=== PATIENT | female | born 1990 | race Caucasian/White ===

== ENCOUNTER 2016-11-22 07:54 | Inpatient (IN) | payer MEDICAID, OTHER ==
[2016-11-22] MEDS ORDERED: PITOCin/NS 20 UNIT/1000ML DRIP 20,000 MILLIUNITS/1,000 ML BAG IV ONE (08:39)
[2016-11-22] MEDS: PITOCin/NS 20 UNIT/1000ML DRIP 20 UNITS/1,000 ML BAG IV SCH ×2 (08:46→10:24)
--- NOTE | 2016-11-22 09:19 | History and Physical Report ---
History of Present Illness Date of examination: 11/22/16 Date of admission: 11/22/16 08:08 Chief complaint: contractions History of present illness: 26 Y/0 presents to Labor and delivery in active labor. care at [facility]. No records available. Limited [place] spoken by the family. Past History Past Medical History: no pertinent history Past Surgical History: no surgical history Family/Genetic History: none Social history: no significant social history - Obstetrical History Expected Date of Delivery: 11/23/16 Actual Gestation: 39 Week(s) 6 Day(s) : 4 Para: 1 Hx # Term Pregnancies: 1 Spontaneous Abortions: 2 Number of Living Children: 1 Medications and Allergies Allergies Allergy/AdvReac Type Severity Reaction Status Date / Time No Known Allergies Allergy Unverified 09/05/14 03:55 Home Medications Medication Instructions Recorded Confirmed Last Taken Type HYDROcodone/APAP 5-325 [[place] 1 each PO Q6HR PRN #20 tablet 09/06/14 Unknown Rx 5/325] Ibuprofen [Motrin] 800 mg PO TID PRN #60 tablet 09/06/14 Unknown Rx Review of Systems All systems: negative - Vital Signs Vital signs: Vital Signs Temp Resp 98.4 F 18 11/22/16 08:15 11/22/16 08:15 Temp Pulse Resp BP Pulse Ox 98.4 F 74 18 110/55 98 11/22/16 08:15 11/22/16 09:06 11/22/16 08:15 11/22/16 09:03 11/22/16 09:06 - Physical Exam Breasts: Positive: deferred Cardiovascular: Regular rate Abdomen: Positive: soft Vulva: both: normal Vagina: Positive: normal moisture Uterus: Positive: enlarged Deep Tendon Reflex Grade: Normal +2 - Obstetrical FHR: category 1 Uterine Contraction Monitor Mode: External Cervical Dilatation: 8 Cervical Effacement Percentage: 100 station: +1 Uterine Contraction Pattern: Regular Uterine Contraction Intensity: Strong/Firm Results All other labs normal. Assessment and Plan A: Active labor at term P: Expect
--- NOTE | 2016-11-22 09:33 | Procedure Note ---
OB Delivery Note - Delivery Date of Delivery: 11/22/16 Surgeon: TUCKER DENNY Estimated blood loss: 100cc - Vaginal Delivery presentation: vertex Delivery position: OA Intrapartum events: meconium Delivery induction: none Delivery monitor: external FHT, external uterine Route of delivery: Delivery placenta: spontaneous Delivery cord: 3 umbilical vessels Episiotomy: none Delivery laceration: other (R labial lac, no repair) Anesthesia: none Delivery comments: (nurse delivery)of a viable female 8#-2oz at 0825 on 11/22/2016 over intact perineum. Small right labial laceration noted, no repair. Thick meconium at delivery. Placenta delivered by ROSE Bond. EBL 100cc. Mother and baby doing well. - Infant A at 1 minute: 8 at 5 minutes: 9 (8# 2oz) Infant Gender: Female
[2016-11-22] MEDS ORDERED: MINERAL OIL PO PRN (09:56)
[2016-11-22] MEDS ORDERED: BENADRYL PO PRN (09:58)
[2016-11-22] MEDS ORDERED: DULCOLAX PR PRN (09:58)
[2016-11-22] MEDS ORDERED: TYLENOL PO PRN (09:58)
[2016-11-22] MEDS ORDERED: NORCO 5/325 PO PRN (09:58)
[2016-11-22] MEDS ORDERED: LANSINOH TP PRN (09:58)
[2016-11-22] MEDS ORDERED: LACTATED RINGERS 1,000 ML IV SCH (10:00)
[2016-11-22] MEDS ORDERED: SODIUM CHLORIDE FLUSH SYRINGE 10 ML IV NR (10:00)
[2016-11-22] MEDS: MOTRIN PO SCH ×3 (10:23→23:39)
[2016-11-22 10:29] LABS: Hematocrit 34.1 % (30.3-42.9); Hemoglobin 10.9 gm/dl (10.1-14.3); Mean Corpuscular HGB Conc 32 % (30-34); Mean Corpuscular Volume 76 fl (79-97); Platelet Count 159 K/mm3 (140-440); Red Blood Count 4.46 M/mm3 (3.65-5.03); Red Cell Distribution Width 15.2 % (13.2-15.2); White Blood Count 8.2 K/mm3 (4.5-11.0)
[2016-11-22 10:32] LABS: Mean Corpuscular Hemoglobin 24 pg (28-32)
[2016-11-22 22:40] LABS: Hematocrit 29.7 % (30.3-42.9); Hemoglobin 9.4 gm/dl (10.1-14.3)
[2016-11-23] MEDS: MOTRIN PO SCH ×3 (05:51→23:28)
[2016-11-23] MEDS ORDERED: BOOSTRIX IM ONE (06:00)
--- NOTE | 2016-11-23 09:59 | Progress Note ---
Assessment and Plan A: PP Day #1 Asymptomatic Anemia P: Follow Routine Orders D/C home today per patient request RTO in 6 Weeks Subjective - Subjective Date of service: 11/23/16 Patient reports: appetite normal, voiding normally, pain well controlled, flatus , ambulating normally Anabel: doing well Objective - Vital Signs Latest vital signs: Vital Signs Temp Pulse Pulse Resp BP BP BP 11/23/16 07:55 97.9 F 64 18 94/60 11/23/16 00:22 97.9 F 62 18 93/50 11/22/16 21:20 98.2 F 62 18 100/48 11/22/16 16:39 97.7 F 76 20 100/70 11/22/16 12:03 16 11/22/16 10:30 98.4 F 65 16 98/47 11/22/16 10:06 64 11/22/16 10:03 65 107/64 11/22/16 10:01 65 Pulse Ox 11/23/16 07:55 11/23/16 00:22 11/22/16 21:20 11/22/16 16:39 11/22/16 12:03 11/22/16 10:30 11/22/16 10:06 98 11/22/16 10:03 11/22/16 10:01 98 Intake and Output 11/22/16 11/23/16 11/23/16 22:59 06:59 14:59 Intake Total 1055 120 120 Output Total 500 Balance 1055 -380 120 Intake: IV 575 PITOCin/NS 20 UNIT/1000ML 575 DRIP 20 units In 1,000 ml @ 125 mls/hr IV DIRECT NAVNEET Rx#:[id number] Oral 240 120 Intake, Free Water 240 120 Output: Urine 500 Void 500 Other: Total, Intake Amount 240 Total, Output Amount 500 Voiding Method Toilet # Voids Void 1 1 - Exam Breasts: Present: normal Cardiovascular: Present: Regular rate Lungs: Present: Clear to auscultation, Normal air movement Abdomen: Present: normal appearance, soft, normal bowel sounds Uterus: Present: normal, firm, fundal height below umbilicus Extremities: Present: normal - Labs Labs: Abnormal lab results 11/22/16 11/22/16 Range/Units 08:15 21:48 Hgb 9.4 L (10.1-14.3) gm/dl Hct 29.7 L (30.3-42.9) % MCV 76 L (79-97) fl MCH 24 L (28-32) pg
--- NOTE | 2016-11-23 10:01 | Discharge Summary ---
Providers - Providers Date of Admission: 11/22/16 08:08 Date of discharge: 11/23/16 Attending physician: JHONY MONROY MD Primary care physician: SEASONAL TAX PREPARER Hospitalization Reason for admission: active labor Delivery: Episiotomy: none Laceration: none Other procedures: none complications: none Discharge diagnosis: IUP at term delivered baby: female Condition at discharge: Good Disposition: DC-01 TO HOME OR SELFCARE Plan - Provider Discharge Summary Activity: routine, no sex for 6 weeks, no heavy lifting 4 weeks, no strenuous exercise Diet: routine Instructions: routine Additional instructions: [] Smoking cessation referral if applicable(refer to patient education folder for contact #) [] Refer to [facility] Booklet Call your doctor immediately for: * Fever > 100.5 * Heavy vaginal bleeding ( >1 pad per hour) * Severe persistent headache * Shortness of breath * Reddened, hot, painful area to leg or breast * Drainage or odor from incision. * Keep incision clean and dry at all times and follow doctor's instructions regarding bathing/showering - Follow up plan Follow up: TUCKER DENNY CNM [Advanced Practice Nurse] - 6 Weeks
[2016-11-24] MEDS: MOTRIN PO SCH (06:00)
[2016-11-24 09:49] VITALS: BP 99/53
== END 2016-11-24 11:50 | disposition home or self-care (01) | DRG 775 ==
LOC: TRG 07:54 → LD 08:08 → OB 10:40
PROVIDERS: ADMIT Obstetrics & Gynecology; ATTEND Obstetrics & Gynecology
PROC: 10E0XZZ Delivery of Products of Conception, External Approach (ICD-10-PCS; principal; 2016-11-22)
PROC: 3E0234Z Introduction of Serum, Toxoid and Vaccine into Muscle, Percutaneous Approach (ICD-10-PCS; 2016-11-23)
DX: O77.0 Labor and delivery complicated by meconium in amniotic fluid (principal); O70.0 First degree perineal laceration during delivery; O90.81 Anemia of the puerperium; D64.9 Anemia, unspecified; Z3A.39 39 weeks gestation of pregnancy; Z37.0 Single live birth; Z23 Encounter for immunization
CPT/HCPCS: 36415; 85014; 85018; 85027; 86850; 86900; 86901; 90471; 90715; 99211; A6250; G0463; J2590

== ENCOUNTER 2019-04-24 20:54 | Inpatient (IN) | payer MEDICAID, OTHER ==
[2019-04-24] MEDS ORDERED: LIDOCAINE (2%) 20 MG/1 ML VIAL 20 ML MDV INFILTRATI ONE (22:03)
[2019-04-24] MEDS ORDERED: TERBUTALINE 1 MG/1 ML INJ IVP PRN (22:03)
[2019-04-24] MEDS ORDERED: BUTORPHANOL 2 MG/1 ML INJ IV PRN (22:03)
[2019-04-24] MEDS ORDERED: NALOXONE 0.4 MG/1 ML INJ IV PRN (22:03)
[2019-04-24] MEDS ORDERED: ePHEDrine SULFATE 50 MG/1 ML INJ IV PRN (22:03)
[2019-04-24] MEDS ORDERED: TERBUTALINE 1 MG/1 ML INJ SUB-Q PRN (22:03)
[2019-04-24] MEDS ORDERED: MINERAL OIL 30 ML ORAL LIQD PO PRN (22:03)
[2019-04-24] MEDS ORDERED: ONDANSETRON 4 MG/2 ML INJ IV PRN (22:03)
--- NOTE | 2019-04-24 22:10 | History and Physical Report ---
History of Present Illness Date of examination: 04/24/19 Date of admission: 04/24/2019 Chief complaint: Intense Labor Pains History of present illness: Early entry to care at 7 weeks at [facility], course complicated by Anemia (taking FeSO4). Past History Past Medical History: no pertinent history Past Surgical History: no surgical history Family/Genetic History: none Social history: no significant social history, single - Obstetrical History Expected Date of Delivery: 05/09/19 Actual Gestation: 37 Week(s) 6 Day(s) : 5 Para: 2 Hx # Term Pregnancies: 2 Spontaneous Abortions: 2 Number of Living Children: 2 #1 Infant Gender: Female year: 2,015 Birthweight: 3.629 kg Method of Delivery: Vaginal Gestational age at delivery: 40 Complications: none #2 Gender: Female year: 2,[birth year] Birthweight: 3.629 kg Method of Delivery: Vaginal Gestational age at delivery: 40 Complications: none Medications and Allergies Allergies Allergy/AdvReac Type Severity Reaction Status Date / Time No Known Allergies Allergy Unverified 09/05/14 03:55 Home Medications Medication Instructions Recorded Confirmed Last Taken Type No Known Home Medications [No 11/22/16 11/22/16 Unknown History Reported Home Medications] Review of Systems All systems: negative - Vital Signs Vital signs: Vital Signs Temp Resp 99.3 F 18 04/24/19 21:19 04/24/19 21:19 Temp Pulse Resp BP Pulse Ox 99.3 F 18 04/24/19 21:19 04/24/19 21:19 - Physical Exam Breasts: Positive: normal Cardiovascular: Regular rate Lungs: Positive: Clear to auscultation, Normal air movement Abdomen: Positive: normal appearance, soft, normal bowel sounds Genitourinary (Female): Positive: normal external genitalia, normal perenium Vagina: Positive: normal moisture Uterus: Positive: enlarged - Obstetrical FHR: category 2 Cervical Dilatation: 6 (SROM of a moderate amount of clear fluid @ 2145) Cervical Effacement Percentage: 80 station: -2 Uterine Contraction Pattern: Regular Uterine Tone Measurement Phase: Resting Uterine Contraction Intensity: Moderate Results All other labs normal. Assessment and Plan A: IUP @ 37 6/7 Weeks Category II Tracing Active Labor SROM GBS Negative P: Admit to L&D per Routine Orders Pitocin Augmentation IV Pain Control
[2019-04-24] MEDS ORDERED: MORPHINE 2 MG/1 ML INJ IV PRN (22:55)
[2019-04-24] MEDS ORDERED: OXYTOCIN 20 UNIT/1000ML DRIP 20 UNITS/1,000 ML BAG IV SCH (23:00)
[2019-04-24] MEDS ORDERED: fentaNYL 100 MCG/2 ML INJ IV ONE (23:00)
[2019-04-24] MEDS ORDERED: OXYTOCIN DRIP 30 UNITS/500 ML BAG IV SCH (23:00)
[2019-04-24] MEDS ORDERED: LACTATED RINGERS 1,000 ML IV SCH (23:00)
[2019-04-24 23:09] LABS: Hemoglobin 9.8 gm/dl (10.1-14.3); Mean Corpuscular HGB Conc 32 % (30-34); Mean Corpuscular Volume 72 fl (79-97); Platelet Count 146 K/mm3 (140-440); Red Cell Distribution Width 18.8 % (13.2-15.2)
[2019-04-24] MEDS ORDERED: diphenhydrAMINE 25 MG CAP PO PRN (23:32)
--- NOTE | 2019-04-24 23:39 | Procedure Note ---
OB Delivery Note - Delivery Date of Delivery: 04/24/19 (2320) Surgeon: DAMARIS AYALA Estimated blood loss: 200cc - Vaginal Delivery presentation: vertex Delivery position: OA Intrapartum events: precipitous labor- <3hr Delivery induction: none Delivery augmentation: pitocin Delivery monitor: external FHT, external uterine Route of delivery: Delivery placenta: spontaneous Delivery cord: nuchal cord, 3 umbilical vessels Episiotomy: none Delivery laceration: none Anesthesia: none Delivery comments: Precipitous vaginal delivery of a 7'8 female infant over a intact perineum without pain control with Apgars of 8 and 9 at 2320 on 04/24/2019. Nuchal cord x 1 easily manually reduced on the perineum prior to delivery of the anterior shoulder. Infant directly to maternal abd/chest, skin to skin contact. Spontaneous delivery of placenta complete and intact with Neal side presenting at 2324. Fundus is firm and midline located 4 below the U. Lochia is scant. Delayed cord clamping and cutting; Cord cut by maternal grandmother. Unable to collect cord blood due to a tear in placenta and small vessels. - A at 1 minute: 8 at 5 minutes: 9 Infant Gender: Female (7'8)
[2019-04-25] MEDS: IBUPROFEN 600 MG TAB PO SCH ×3 (00:02→20:45)
[2019-04-25] MEDS ORDERED: TETANUS,DIPH,PERTUSS(ACELL) VACCINE 0.5 ML SYRINGE IM ONE (05:39)
[2019-04-25] MEDS: PRENATAL VIT27-FE FUMARATE-FOLIC ACID VIT TAB PO SCH (09:24)
[2019-04-25] MEDS: HYDROcodone/ACETAMINOPHEN 5-325 MG TAB PO PRN (09:27)
--- NOTE | 2019-04-25 12:14 | Progress Note ---
Assessment and Plan A: PPD#1 s/p Stable P: Routine PP care Anticipate d/c 04/26/2019 Subjective - Subjective Date of service: 04/25/19 Principal diagnosis: PPD#1 s/p Interval history: See H&P and delivery note Patient reports: appetite normal, voiding normally, pain well controlled, flatus, ambulating normally, no bowel movement Babb: doing well, bottle feeding Objective - Vital Signs Latest vital signs: Vital Signs Temp Pulse Resp BP BP Pulse Ox 04/25/19 09:55 98.4 F 56 L 16 91/49 04/25/19 05:25 59 L 92/49 97 04/25/19 04:57 98.4 F 70 20 94/42 97 04/25/19 01:53 102/55 04/25/19 00:35 98.2 F 68 107/58 04/25/19 00:33 69 108/64 04/25/19 00:15 76 112/81 04/25/19 00:02 18 04/24/19 23:59 98.9 F 04/24/19 23:55 73 115/58 04/24/19 23:35 73 111/56 04/24/19 23:32 75 114/61 04/24/19 23:16 75 137/75 04/24/19 22:56 74 109/69 04/24/19 22:25 98.6 F 78 20 110/72 04/24/19 22:23 78 110/72 04/24/19 21:19 99.3 F 18 Intake and Output 04/24/19 04/25/19 04/25/19 23:59 07:59 15:59 Intake Total 240 Balance 240 Intake: Oral 240 Other: Total, Intake Amount 240 # Voids Void 600 Weight 66.678 kg Estimated Blood Loss 200 - Exam Breasts: Present: normal Cardiovascular: Present: Regular rate, Normal S1, Normal S2, No murmurs Lungs: Present: Clear to auscultation, Normal air movement Abdomen: Present: normal appearance, soft, normal bowel sounds Vulva: both: normal Uterus: Present: normal, firm, fundal height at umbilicus Extremities: Present: normal Deep Tendon Reflex Grade: Normal +2 - Labs Labs: Abnormal lab results 04/24/19 Range/Units 22:50 Hgb 9.8 L (10.1-14.3) gm/dl MCV 72 L (79-97) fl MCH 23 L (28-32) pg RDW 18.8 H (13.2-15.2) %
--- NOTE | 2019-04-25 12:16 | Discharge Summary ---
Providers - Providers Date of Admission: 04/24/19 22:03 Date of discharge: 04/26/19 Attending physician: FREDDY MURRAY MD Primary care physician: FREDDY MURRAY MD Hospitalization Reason for admission: active labor Delivery: Procedure details: See H&P and delivery note Episiotomy: none Laceration: none Other procedures: none complications: none Discharge diagnosis: IUP at term delivered [place] baby: male Condition at discharge: Good Disposition: DC-01 TO HOME OR SELFCARE Plan - Provider Discharge Summary Activity: routine, no sex for 6 weeks, no heavy lifting 4 weeks, no strenuous exercise Diet: routine Instructions: routine Additional instructions: [] Smoking cessation referral if applicable(refer to patient education folder for contact #) [] Refer to [facility]'s [facility] Booklet Call your doctor immediately for: * Fever > 100.5 * Heavy vaginal bleeding ( >1 pad per hour) * Severe persistent headache * Shortness of breath * Reddened, hot, painful area to leg or breast * Drainage or odor from incision. * Keep incision clean and dry at all times and follow doctor's instructions regarding bathing/showering - Follow up plan Follow up: FREDDY MURRAY MD [Primary Care Provider] - 6 Weeks
[2019-04-25 13:00] LABS: Hematocrit 28.2 % (30.3-42.9); Hemoglobin 9.1 gm/dl (10.1-14.3)
[2019-04-26] MEDS: IBUPROFEN 600 MG TAB PO SCH ×2 (05:40)
[2019-04-26] MEDS ORDERED: TETANUS,DIPH,PERTUSS(ACELL) VACCINE 0.5 ML SYRINGE IM ONE (06:00)
[2019-04-26] MEDS: PRENATAL VIT27-FE FUMARATE-FOLIC ACID VIT TAB PO SCH (11:21)
[2019-04-26] MEDS: HYDROcodone/ACETAMINOPHEN 5-325 MG TAB PO PRN (13:03)
[2019-04-26 17:56] VITALS: BP 110/72
== END 2019-04-26 13:50 | disposition home or self-care (01) | DRG 807 ==
LOC: TRG 20:54 → LD 22:03 → OB 04-25 01:58
PROVIDERS: ADMIT Obstetrics & Gynecology; ATTEND Obstetrics & Gynecology
PROC: 10E0XZZ Delivery of Products of Conception, External Approach (ICD-10-PCS; principal; 2019-04-24)
PROC: 3E0234Z Introduction of Serum, Toxoid and Vaccine into Muscle, Percutaneous Approach (ICD-10-PCS; 2019-04-26)
DX: O62.3 Precipitate labor (principal); Z37.0 Single live birth; O69.1XX0 Labor and delivery complicated by cord around neck, with compression, not applicable or unspecified; Z3A.37 37 weeks gestation of pregnancy; Z23 Encounter for immunization
CPT/HCPCS: 36415; 85014; 85018; 85027; 86850; 86900; 86901; 90471; 90715; G0378; J2590